=== PATIENT | female | born 1980 | race Caucasian/White ===

== ENCOUNTER 2024-04-27 08:17 | Outpatient (AMB) | payer OTHER, SELFPAY ==
--- NOTE | 2024-04-27 08:21 | AM.OFFWIN_ITS ---
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 Patient Tobacco Use Status: Former Tobacco user Allergies No Known Allergies Allergy (Verified 04/27/24 08:25) Do you need a note to return to daycare/school/sports/work: No HPI HPI Comments History of Present Illness Details History of Present Illness - The patient is a 43-year-old female pr esenting with foot pain following a recent fall. - Approximately one hour prior to presen tation, she slipped on ice while walking her dog, resulting in a fall. - Both sides of the foot were affected, with the inability to bear weight immediately post-injury. - Notably, there is redness and swelling particularly acute on one side of the foot. - Toe movement and limited ankle mobilit y are present, though toe flexion and extension are painful. - The patient required assistance for am bulation due to the severity of pain. - No history of similar injuries or rela armen medical treatment was noted. Physical Exam General: Cooperative, healthy appearing, comfortable, no acute distress and well developed Orientation: Patient oriented x3 Limitations: Unable to walk on the foot since the incident, using wheelchair Head: Normal to inspection Ears: Hearing grossly normal bilaterally Nose: Normal external nose present Face and sinus: Normal facial exam Eyes: Appearance normal, both eyes and all related structures Neck: Normal visual inspection and Yes full ROM Respiratory: Normal respiratory effort and able to speak in complete sentences. Skin: Redness and swelling noted on the foot Neuro: Patient oriented x3 Extremities: see below [facility] Social History Patient Tobacco Use Status: Former Tobacco user Review of Systems Const All systems reviewed & are unremarkable except as noted in HPI and below Physical Exam Vital Signs: Last Vital Signs Pulse 71 04/27/24 08:25 BP 118/72 04/27/24 08:25 Pulse Ox 100 04/27/24 08:25 Oxygen Delivery Method Room Air 04/27/24 08:25 BMI result Body Mass Index 20.8 Extrem Right lower extremity: ankle Details: tenderness Location: of the anterior talofibular ligament, swelling Details: laterally, medially and anteriorly and normal ROM; no unusual warmth, no abrasions, no lacerations, no ecchymosis and achilles tendon exam normal and foot Details: normal capillary refill, toes with normal ROM (with pain, flexion), edema (slight) Location: of the lateral foot, vascular exam Details: normal capillary refill, tendon exam (with pain) Details: active flexion normal and active extension normal and motor-sensory exam Details: light-touch normal; no unusual warmth, no abrasion, no laceration and no ecchymosis Assessment & Plan Assessment & Plan (1) Right foot pain: Code(s): M79.671 - Pain in right foot Plan: as below (2) Acute right ankle pain: Code(s): M25.571 - Pain in right ankle and joints of right foot Plan: as below (3) Right ankle sprain: Code(s): S93.401A - Sprain of unspecified ligament of right ankle, initial encounter Qualifiers: Encounter type: initial encounter Involved ligament of ankle: anterior talofibular ligament Qualified Code(s): S93.491A - Sprain of other ligament of right ankle, initial encounter Plan: Plan I will proceed with x-rays of the foot and ankle to assess for fractures or severe injuries due to the fall. My evaluation of the XRs are no acute fracture or dislocation. Immobilization in a supportive boot will likely be necessary to aid in stabilization and healing, despite potential discomfort and impaired ambulation. Gave pt boot but it felt uncomfortable so she opted for DEBBIE wrap and crutches and is parish the boot home for later use. Instructions on weaning off boot after 3-4 days given, use ice and Aleve for comfort. Rolling ice water bottle on the bottom of her foot. Immediate steps focus on pain relief and providing structural support to the foot to prevent further injury. Patient was informed and verbally consented to the use of an ambient scribe for clinic note documentation during this visit. (4) Right foot sprain: Code(s): S93.601A - Unspecified sprain of right foot, initial encounter Qualifiers: Encounter type: initial encounter Qualified Code(s): S93.601A - Unspecified sprain of right foot, initial encounter Plan: as above Orders: Orders XR foot RT min 3V Today M25.571 - Pain in right ankle and joints of right foot, M79.671 - Pain in right foot XR ankle RT min 3V Today M25.571 - Pain in right ankle and joints of right foot, M79.671 - Pain in right foot Coding Level of Care Code New Pt Level 5 (13184) Diagnoses Right foot pain M79.671 Acute right ankle pain M25.571 Sprain of anterior talofibular ligament of right ankle, initial encounter S93.491A Encounter type: initial encounter Involved ligament of ankle: anterior talofibular ligament Sprain of right foot, initial encounter S93.601A Encounter type: initial encounter
[2024-04-27 08:25] VITALS: BP 118/72; PULSE 71; O2SAT 100; BMI 20.8
== END 2024-04-27 09:55 | disposition home or self-care (01) ==
PROVIDERS: Visit Provider Physician Assistant
DX: M79.671 Pain in right foot (principal); M25.571 Pain in right ankle and joints of right foot; S93.491A Sprain of other ligament of right ankle, initial encounter; S93.601A Unspecified sprain of right foot, initial encounter

== ENCOUNTER 2024-04-27 08:17 | Outpatient (REF) | payer OTHER, SELFPAY ==
--- NOTE | ~2024-04-27 | XR_ITS ---
EXAMINATION: XR RIGHT FOOT AND ANKLE CLINICAL INDICATION: Pain in right ankle and joints of foot. Patient states she was walking the dog this morning, slipped and fell on the ice. COMPARISON: None available. TECHNIQUE: 3 views of the right foot and 2 views of the right ankle. FINDINGS: RIGHT ANKLE: Bone mineralization is normal. Tiny plantar calcaneal spur. Marked soft tissue swelling along the lateral aspect of the ankle. No definitive displaced fracture of the lateral malleolus is appreciated. 4 mm subcortical lucency along the medial aspect of the talar dome best appreciated on the oblique view. RIGHT FOOT: Comminuted, mildly displaced fractures along the proximal aspects of the third and fourth metatarsals. Evaluation of adjacent bony structures is somewhat limited due to overlying bony structures. Appearance is characteristic of Lisfranc fracture. Small ossicle along the medial aspect of the first tarsometatarsal joint of indeterminate age. XR/XR foot RT min 3V IMPRESSION: 1. Comminuted, mildly displaced fractures along the proximal aspects of the third and fourth metatarsals. Evaluation of adjacent bony structures is somewhat limited due to overlying bony structures. Appearance is characteristic of Lisfranc fracture. CT scan recommended for further evaluation. 2. Marked soft tissue swelling along the lateral aspect of the ankle. No definitive displaced fracture of the lateral malleolus is appreciated. 3. A 4 mm subcortical lucency along the medial aspect of the talar dome best appreciated on the oblique view. 4. Small ossicle along the medial aspect of the first tarsometatarsal joint of indeterminate age. 5. CT scan recommended for further evaluation. This study was presented today April 27, 2024 for interpretation. Stat results provided at this time as requested by referring provider. Electronically signed by: Maame Earl MD 04/27/2024 09:[address] [facility]
--- NOTE | ~2024-04-27 | XR_ITS ---
EXAMINATION: XR RIGHT FOOT AND ANKLE CLINICAL INDICATION: Pain in right ankle and joints of foot. Patient states she was walking the dog this morning, slipped and fell on the ice. COMPARISON: None available. TECHNIQUE: 3 views of the right foot and 2 views of the right ankle. FINDINGS: RIGHT ANKLE: Bone mineralization is normal. Tiny plantar calcaneal spur. Marked soft tissue swelling along the lateral aspect of the ankle. No definitive displaced fracture of the lateral malleolus is appreciated. 4 mm subcortical lucency along the medial aspect of the talar dome best appreciated on the oblique view. RIGHT FOOT: Comminuted, mildly displaced fractures along the proximal aspects of the third and fourth metatarsals. Evaluation of adjacent bony structures is somewhat limited due to overlying bony structures. Appearance is characteristic of Lisfranc fracture. Small ossicle along the medial aspect of the first tarsometatarsal joint of indeterminate age. XR/XR ankle RT min 3V IMPRESSION: 1. Comminuted, mildly displaced fractures along the proximal aspects of the third and fourth metatarsals. Evaluation of adjacent bony structures is somewhat limited due to overlying bony structures. Appearance is characteristic of Lisfranc fracture. CT scan recommended for further evaluation. 2. Marked soft tissue swelling along the lateral aspect of the ankle. No definitive displaced fracture of the lateral malleolus is appreciated. 3. A 4 mm subcortical lucency along the medial aspect of the talar dome best appreciated on the oblique view. 4. Small ossicle along the medial aspect of the first tarsometatarsal joint of indeterminate age. 5. CT scan recommended for further evaluation. This study was presented today April 27, 2024 for interpretation. Stat results provided at this time as requested by referring provider. Electronically signed by: Maame Earl MD 04/27/2024 09:50 AM [facility]
== END 2024-04-27 08:18 | disposition home or self-care (01) ==
LOC: HO.HMGCX 08:17
PROVIDERS: Visit Provider Physician Assistant
DX: S92.331A Displaced fracture of third metatarsal bone, right foot, initial encounter for closed fracture (principal); S92.341A Displaced fracture of fourth metatarsal bone, right foot, initial encounter for closed fracture; W00.0XXA Fall on same level due to ice and snow, initial encounter; Y93.K1 Activity, walking an animal; Y92.9 Unspecified place or not applicable; Y99.9 Unspecified external cause status
CPT/HCPCS: 73610; 73630